=== PATIENT | female | born 1970 | race Caucasian/White ===

== ENCOUNTER 2019-06-13 23:17 | Emergency (ER) | payer OTHER, SELFPAY ==
[2019-06-13 23:20] VITALS: BP 150/84; PULSE 92; RESP 16; TEMP 36.4; O2SAT 100
--- NOTE | 2019-06-13 23:24 | PC.NURSE ---
pt refusing iv insertion at this time.
[2019-06-13] MEDS: predniSONE 20 MG TABLET 60 MG PO (23:35)
--- NOTE | 2019-06-13 23:41 | ED.ALLEREA ---
HPI - Allergic Reaction General Chief complaint: Allergic Reaction <NICOL Torres Last Filed: 06/14/19 00:56> Stated complaint: possible allergic reaction <NICOL Torres Last Filed: 06/14/19 00:56> Time Seen by Provider: 06/13/19 23:23 <NICOL Torres Last Filed: 06/14/19 00:56> Source: patient <NICOL Torres Last Filed: 06/14/19 00:56> Mode of arrival: ambulatory <NICOL Torres Last Filed: 06/14/19 00:56> Limitations: no limitations <NICOL Torres Last Filed: 06/14/19 00:56> History of Present Illness HPI narrative: This is a 49 year old female that presents to the ER for allergic reaction. Reports she took a Prevacid around 8:30pm. Reports about an hour later she started to have diffuse itching. Reports a diffuse red rash. Also reports some facial swelling. Reports she took 2 Benadryl around 10:00pm and her symptoms have since improved. Denies vomiting, diarrhea, swelling of her tongue, dysphagia, or dyspnea. <NICOL Torres Last Filed: 06/14/19 00:56> Related Data Allergies/adverse reactions: Allergies Allergy/AdvReac Type Severity Reaction Status Date / Time lansoprazole Allergy Itching Verified 06/13/19 23:37 <NICOL Torres Last Filed: 06/14/19 00:56> Review of Systems Review of Systems: Narrative: CONSTITUTIONAL: Denies fever ENT: Denies dysphagia RESPIRATORY: Denies dyspnea. GASTROINTESTINAL: Denies abdominal pain, vomiting, or diarrhea. SKIN: Reports rash and itching. <NICOL Torres Last Filed: 06/14/19 00:56> All systems reviewed & are unremarkable except as noted in HPI and below <NICOL Torres Last Filed: 06/14/19 00:56> [facility] Surgical History Surgical History: Surgical History (Updated 06/14/19 @ 00:49 by Afsaneh Marley PA-C) History of <Afsaneh Marley PA-C - Last Filed: 06/14/19 00:56> Social History Social History: Social History (Updated 06/13/19 @ 23:49 by Afsaneh Marley PA-C) Smoking status: Current every day smoker Gender identity (if verbalized by the patient): Female <Afsaneh Marley PA-C - Last Filed: 06/14/19 00:56> Exam Narrative: Exam Narrative: GENERAL: Well-appearing, well-nourished, and in no acute distress. HEAD: Normocephalic, atraumatic. Mild facial swelling and redness, especially about the eyelids EYES: EOMI. ENT: Nares clear, no rhinorrhea or epistaxis. Mucous membranes moist. Oropharynx without tonsillar hypertrophy exudate or other lesions. Bilateral TMs pearly linton non-bulging. No tongue or throat swelling noted NECK: Supple. No adenopathy or masses. CHEST: Airway patent. Clear to auscultation. No respiratory distress. No wheezes rales or rhonchi HEART: Regular rate and rhythm. No murmur heard. Normal peripheral pulses. EXTREMITIES: Normal range of motion. No edema. SKIN: Warm, dry. Mild redness and excoriations present to the arms and upper back NEURO: No focal deficits. Alert and oriented x3. PSYCH: Normal mood and affect <Afsaneh Marley PA-C - Last Filed: 06/14/19 00:56> Course Vital Signs Vital signs: Vital Signs Temperature 97.6 F 06/13/19 23:20 Pulse Rate 92 06/13/19 23:20 Respiratory Rate 16 06/13/19 23:20 Blood Pressure 150/84 H 06/13/19 23:20 Pulse Oximetry 100 06/13/19 23:20 Temperature 97.3 F L 06/14/19 01:04 Pulse Rate 74 06/14/19 01:04 Respiratory Rate 16 06/14/19 01:04 Blood Pressure 124/76 06/14/19 01:04 Pulse Oximetry 98 06/14/19 01:04 <Afsaneh Marley PA-C - Last Filed: 06/14/19 00:56> Vital Signs Temperature 97.6 F 06/13/19 23:20 Pulse Rate 92 06/13/19 23:20 Respiratory Rate 16 06/13/19 23:20 Blood Pressure 150/84 H 06/13/19 23:20 Pulse Oximetry 100 06/13/19 23:20 Temperature 97.3 F L 06/14/19 01:04 Pulse Rate 74 06/14/19 01:04 Respiratory Rate 16 06/14/19 01:04 Blood Pressure 124/76
[2019-06-13] MEDS: FAMOTIDINE 20 MG TABLET PO (23:44)
[2019-06-14 01:04] VITALS: BP 124/76; PULSE 74; RESP 16; TEMP 36.3; O2SAT 98
== END 2019-06-14 01:10 | disposition home or self-care (01) ==
PROVIDERS: Emergency Provider General Practice; PCP Internal Medicine
DX: T78.40XA Allergy, unspecified, initial encounter (principal)
CPT/HCPCS: 99283; A9270; J7512

== ENCOUNTER 2020-03-28 12:48 | Outpatient (CLI) | payer OTHER, SELFPAY ==
--- NOTE | ~2020-03-28 | MMUS_ITS ---
EXAMINATION: MM diagnostic [facility] BI w jak, US breast LT complete HISTORY: 12 month follow-up for probably benign left breast masses TECHNIQUE: Craniocaudal, mediolateral, and mediolateral oblique 3-D tomosynthesis images of the nicole ts were performed and synthetic 2-D images were generated. CAD analysis was submitted and interpreted . High resolution complete left breast ultrasound was performed including all four quadrants and the subareolar region. COMPARISON: 02/28/2019, 07/28/2018, 02/02/2018, 01/25/2018, 29/12/2014 BREAST PARENCHYMAL COMPOSITION: There are scattered areas of fibroglandular density. FINDINGS: MAMMOGRAPHIC FINDINGS: Left breast: Again seen are multiple obscured left breast masses without suspicious interval change. The largest measures 1.5 cm at the 6:00 location in the middle third of the breast. No suspicious rubi cification or architectural distortion are identified. Right breast: There is no evidence of suspicious mass, calcification, or architectural distortion to suggest malignancy. There has been no suspicious interval change. ULTRASOUND: There is a stable 1.4 cm cyst at the 6:00 location. A previously described mass at the 4:00 location is no longer identified. Smaller circumscribed hypoechoic masses at the 12:00 location near the nippl e are stable. IMPRESSION: 1. Stable left breast masses, consistent with benign findings. No mammographic evidence of malignancy in the right breast. 2. Recommend routine screening mammography in one year. BI-RADS Category 2: Benign finding(s). Reviewed, dictated and finalized at location A. DER HAND IMPRESSION: 1. Stable left breast masses, consistent with benign findings. No mammographic evidence of malignancy in the right breast. 2. Recommend routine screening mammography in one year. BI-RADS Category 2: Benign finding(s).
== END 2020-03-28 12:49 | disposition home or self-care (01) ==
LOC: ANHIMG 12:52
PROVIDERS: PCP Internal Medicine; Visit Provider Obstetrics & Gynecology Gynecology
DX: N60.02 Solitary cyst of left breast (principal); N64.4 Mastodynia
CPT/HCPCS: 76641; 77062; 77066; G0279

== ENCOUNTER 2021-03-31 14:43 | Outpatient (CLI) | payer OTHER, SELFPAY ==
--- NOTE | ~2021-03-31 | MM_ITS ---
EXAMINATION: MM screening [facility] BI w jak HISTORY: Screening mammogram TECHNIQUE: Craniocaudal and mediolateral oblique 3-D tomosynthesis images were obtained and synthetic 2-D images were generated. CAD analysis was submitted and interpreted. COMPARISON: 03/28/2020, 07/28/2018, 02/02/2018, 01/25/2018 BREAST PARENCHYMAL COMPOSITION: There are scattered areas of fibroglandular density. FINDINGS: Bilateral breast masses are seen which are stable to decreased in size, previously characte rized as benign. There is no evidence of suspicious mass, calcification, or architectural distortion to suggest malignancy in either breast. There has been no suspicious interval change. IMPRESSION: 1. No mammographic evidence of malignancy. 2. Recommend routine screening mammography in one year. BI-RADS Category 2: Benign finding(s). Reviewed, dictated and finalized at location A. MVA REACTOR OPERATOR
== END 2021-03-31 14:44 | disposition home or self-care (01) ==
LOC: ANHIMG 14:46
PROVIDERS: PCP Internal Medicine; Visit Provider Nurse Practitioner
DX: Z12.31 Encounter for screening mammogram for malignant neoplasm of breast (principal)
CPT/HCPCS: 77063; 77067

== ENCOUNTER 2022-03-10 10:34 | Emergency (ER) | payer OTHER, SELFPAY ==
[2022-03-10] VITALS (13 sets, daily range): BP systolic 129–136; BP diastolic 64–79; PULSE 73–92; RESP 13–20; TEMP 36.6; O2SAT 96–100
--- NOTE | ~2022-03-10 | CT_ITS ---
EXAMINATION: CT abdomen pelvis w con DATE: 03/10/2022 16:31 INDICATION: Generalized abdominal pain with vomiting x2 days. TECHNIQUE: Computed tomography (CT) of the abdomen and pelvis was performed with 100 mL Omnipaque-350 intravenous contrast. Automated exposure control and iterative reconstruction technique were employe d. The dose-length product was 616.37 mGy-cm. COMPARISON: Limited abdominal ultrasound, same date. FINDINGS: Lower thorax: 4 mm right lower lobe pulmonary nodule. Dependent atelectasis. Liver: Normal. Biliary/Gallbladder: Gallbladder is normal. No bile duct dilation. Pancreas: No mass or duct dilation. Spleen: Normal. Adrenals:No mass. Kidneys: Bilateral hypodensities that are too small to characterize, but most likely represent cysts. No suspicious mass, calcification, or hydronephrosis. GI tract: Mild distal esophageal and antral wall edema. Several loops of mildly dilated small bowel i n the upper mid abdomen, without focal transition point. No large bowel dilation. Normal appendix. Mesentery/Peritoneum: No ascites, mass, or free air. Retroperitoneum: No mass. Pelvis: Pelvic organs are within normal limits. Soft Tissues: Soft tissues and body wall unremarkable. Bones: No acute osseous finding. IMPRESSION: 1. 4 mm right lower lobe pulmonary nodule. No follow-up recommended unless the patient is at high ris k, in which case consider optional low-dose CT of the chest in 12 months. 2. Several loops of mildly dilated mid upper abdominal small bowel, likely ileus related to enteritis given the history, noting that early/partial obstruction cannot be excluded. 3. Mild esophagitis/gastritis. Reviewed, dictated and finalized at location K. PPING MACHINE OPERATOR IMPRESSION: 1. 4 mm right lower lobe pulmonary nodule. No follow-up recommended unless the patient is at high risk, in which case consider optional low-dose CT of the su st in 12 months. 2. Several loops of mildly dilated mid upper abdominal small bowel, likely ileu s related to enteritis given the history, noting that early/partial obstruction cannot be excluded. 3. Mild esophagitis/gastritis.
--- NOTE | ~2022-03-10 | US_ITS ---
US abdomen limited INDICATION: Evaluate for gallstones PROCEDURE: Realtime right upper abdominal ultrasound. COMPARISON: No prior studies for comparison. FINDINGS: The pancreas is normal without focal mass or pancreatic ductal dilation. Liver echotexture is normal without focal mass or intrahepatic biliary dilatation. There is normal directional flow i n the portal vein. The gallbladder is normal without stones, gallbladder wall thickening or pericholecystic fluid. Comm on bile duct measures 3 mm. No sonographic Ortega's sign. IMPRESSION: 1: Unremarkable limited abdominal ultrasound. Reviewed, dictated and finalized at location A. ET INSPECTOR
--- NOTE | 2022-03-10 14:37 | ED.GENADULT ---
HPI - General Adult General Chief complaint: Abdominal Pain Stated complaint: abd pain Time Seen by Provider: 03/10/22 14:30 History of Present Illness HPI narrative: This is a 52-year-old female presenting to ED with a chief complaint of abdominal pain. The patient says that the pain started in the epigastric and right upper quadrant this morning and woke her from sleep. She describes is an achy pain, that is nonradiating, 6/10 in intensity and constant. She did have a similar episode last week that lasted for about 15 minutes before resolved on its own. There are no exacerbating or alleviating factors. She does note that she has had subjective fever and chills, 2-3 episodes of nausea and vomiting and some diarrhea. She denies chest pain, difficulty breathing or dysuria. Patient has a sick son at home who also has nausea and vomiting. Patient has not been vaccinated against flu or COVID. Related Data Allergies Allergy/AdvReac Type Severity Reaction Status Date / Time lansoprazole Allergy Itching Verified 06/13/19 23:37 Review of Systems Review of Systems: CONSTITUTIONAL: Denies night sweats. EYES: No eye pain ENT: Denies rhinorrhea CARDIOVASCULAR: Denies palpitations RESPIRATORY: Denies hemoptysis GASTROINTESTINAL: Denies hematemesis GENITOURINARY: Denies hematuria. SKIN: Denies rash MUSCULOSKELETAL: Denies myalgia. NEUROLOGIC: Denies weakness. PSYCHIATRIC: Denies delusions [facility] Surgical History Surgical History History of Social History Social History Smoking status: Current every day smoker Gender identity (if verbalized by the patient): Female Exam Narrative: APPEARANCE: No apparent distress. Head: atraumatic. EYES: EOMI, NOSE: Atraumatic NECK: Trachea midline RESPIRATORY: No increased rate of breathing CARDIOVASCULAR: RRR, ABDOMINAL: Tenderness to palpation in the epigastric and right upper quadrant. No guarding or rebound. No CVA tenderness. MUSCULOSKELETAl: No obvious deformities NEURO: Alert. Moving 4/4 extremities SKIN:: Warm, dry. Normal color PSYCHIATRIC: Normal affect Course Vital Signs Vital signs: Vital Signs Temperature 97.9 F 03/10/22 10:35 Pulse Rate 87 03/10/22 10:35 Respiratory Rate 20 03/10/22 10:35 Blood Pressure 129/64 03/10/22 10:35 Pulse Oximetry 100 03/10/22 10:35 Oxygen Delivery Room Air 03/10/22 10:35 Temperature 97.9 F 03/10/22 10:35 Pulse Rate 82 03/10/22 15:28 Respiratory Rate 19 03/10/22 15:28 Blood Pressure 136/79 03/10/22 15:07 Pulse Oximetry 100 03/10/22 15:28 Oxygen Delivery Room Air 03/10/22 10:35 Medical Decision Making MDM Narrative Medical decision making narrative: This is a 52-year-old female presenting ED with abdominal pain. Differential includes gastroenteritis, gastritis, biliary disease And viral syndromes. Lab work, flu and COVID swabs and a right upper quadrant ultrasound been ordered. Patient will be treated symptomatically with Pepcid Zofran fluids and Tylenol. Lab work was unremarkable. Urinalysis had 4 6 urine white blood cells per high-power field but also had a moderate amount of squamous cells and is likely a dirty catch. Patient is not have urinary symptoms at this time. Flu and COVID were negative. Abdominal ultrasound did not reveal any gallstones in the gallbladder. CT abdomen pelvis with intravenous: 1. 4 mm right lower lobe pulmonary nodule. No follow-up recommended unless the patient is at high risk, in which case consider optional low-dose CT of the chest in 12 months. 2. Several loops of mildly dilated mid upper abdominal small bowel, likely ileus related to enteritis given the history, noting that early/partial obstruction cannot be excluded. 3. Mild esophagitis/gastritis. This time the patient's findings are most consistent with gastroenteriti
[2022-03-10 14:43] LABS: Basophils Percent Auto 0.2 % (0.2-1.2); Eosinophils Percent Auto 0.4 % (0-4.4); Hematocrit 42.9 % (37.0-47.0); Hemoglobin 14.4 g/dL (12.0-15.0); Immature Granulocyte Absolute 0.04 K/mm3 (0.00-0.031); Immature Granulocyte Percent A 0.4 % (0-0.5); Lymphocytes Absolute Auto 1.09 K/mm3 (0.9-3.2); Lymphocytes Percent Auto 10.6 % (18.3-44.2); Mean Corpuscular HGB Conc 33.6 g/dl (32-36); Mean Corpuscular Hemoglobin 32.1 pg (26-34); Mean Corpuscular Volume 95.5 fl (80-100); Mean Platelet Volume 9.5 fl (7.4-10.4); Monocytes Absolute Auto 0.2 K/mm3 (0.1-0.6); Monocytes Percent Auto 2.1 % (2.6-8.5); Neutrophils Absolute Auto 8.8 K/mm3 (1.3-6.7); Neutrophils Percent Auto 86.3 % (45.5-73.1); Platelet Count Result 307 k/mm3 (150-375); Red Blood Count 4.49 M/mm3 (4.2-5.4); Red Cell Distribution Width 12.7 % (11.5-14.5); White Blood Count 10.3 K/mm3 (4.5-10.0)
[2022-03-10 14:52] LABS: Appearance Urine Clear (Clear); Bilirubin Urine Negative (Negative); Blood Urine 2+ (Negative); Color Urine Yellow (Yellow); Glucose Urine UA Negative (Negative); Ketones Urine Negative (Negative); Leukocyte Esterase Ur Trace LEU/UL (Negative); Nitrate Urine Negative (Negative); Protein Urine Trace mg/dL (Negative); Urobilinogen Urine 0.2 mg/dL (<2.0)
[2022-03-10 14:54] LABS: Alanine Aminotransferase 22 U/L (6-35); Albumin Level 4.6 g/dL (3.5-5.1); Alkaline Phosphatase 77 U/L (38-126); Anion Gap 9 mmol/L (8-16); Aspartate Amino Transferase 32 U/L (14-36); Bilirubin,Total 0.5 mg/dL (0.2-1.3); Blood Urea Nitrogen 19 mg/dL (7-17); Calcium 8.6 mg/dL (8.4-10.2); Carbon Dioxide 25 mmol/L (22-30); Chloride 106 mmol/L (98-107); Estimated CRCL calculation 75 ml/min; Estimated Glomerular Filt Rate > 60; Glucose 105 mg/dL (65-110); Lipase 29 U/L (23-300); Potassium 4.3 mmol/L (3.4-5.0); Sodium 140 mmol/L (137-145)
[2022-03-10] MEDS: ONDANSETRON INJ 4 MG/2 ML VIAL IV PUSH (14:58)
[2022-03-10] MEDS: FAMOTIDINE 20 MG/2 ML VIAL IV PUSH (14:58)
[2022-03-10] MEDS: SODIUM CHLORIDE 0.9% IV 1,000 ML 999 ML IV CONT (15:02)
[2022-03-10 15:05] LABS: Bacteria Urine Trace /hpf; Mucus Urine Rare /lpf; Squamous Epithelial Cell Urine Moderate /hpf (Few)
[2022-03-10 15:07] LABS: Add Urine Microscopic? YES
[2022-03-10 15:45] LABS: Influenza A QL RT-PCR Negative (Negative); Influenza B QL RT-PCR Negative (Negative); SARS-CoV-2 RNA PCR Negative
== END 2022-03-10 18:00 | disposition home or self-care (01) ==
PROVIDERS: Emergency Medicine; Emergency Provider Emergency Medicine; PCP Internal Medicine
DX: K52.9 Noninfective gastroenteritis and colitis, unspecified (principal); F17.200 Nicotine dependence, unspecified, uncomplicated; R91.1 Solitary pulmonary nodule; K20.90 Esophagitis, unspecified without bleeding; K29.70 Gastritis, unspecified, without bleeding
CPT/HCPCS: 36415; 74177; 76705; 80053; 81001; 81025; 83690; 85025; 87636; 96361; 96374; 96375; 99284; J0131; J2405; J7030; Q9967